=== PATIENT | female | born 1965 | race Hispanic/Latino ===

== ENCOUNTER 2021-03-14 10:54 | Outpatient (CLI) | payer BC | END 2021-03-14 10:55 | disposition home or self-care (01) | LOC: BICRAD 10:54 | PROVIDERS: ATTEND Family Medicine | DX: M25.562 Pain in left knee (principal); S82.202A Unspecified fracture of shaft of left tibia, initial encounter for closed fracture ==

== ENCOUNTER 2024-05-30 12:41 | Outpatient (CLI) | payer BC | END 2024-05-30 12:42 | disposition home or self-care (01) | LOC: BICMAMMO 12:41 | PROVIDERS: ATTEND Obstetrics & Gynecology | DX: Z12.31 Encounter for screening mammogram for malignant neoplasm of breast (principal) | CPT/HCPCS: 77063; 77067 ==